=== PATIENT | female | born 1990 | race Caucasian/White ===

== ENCOUNTER 2018-10-03 01:15 | Inpatient (IN) | payer BC ==
[2018-10-03] MEDS ORDERED: Lidocaine 1% 50 ML MDV INJECT ONE (01:52)
[2018-10-03] MEDS ORDERED: Sodium Chloride 0.9% 10 ML Syringe FLUSH PRN (01:52)
[2018-10-03] MEDS ORDERED: Nalbuphine 20 MG/ML 1 ML Syringe IVPUSH PRN (01:52)
[2018-10-03] MEDS ORDERED: Oxytocin/Lactated Ringers 10 UNIT/1,000 ML BAG IV SCH (02:00)
[2018-10-03] MEDS: Lactated Ringers 1,000 ML IV SCH ×4 (02:07→05:54)
[2018-10-03] MEDS ORDERED: fentaNYL 100 MCG/2 ML SDV ONE (03:21)
[2018-10-03] MEDS ORDERED: fentaNYL 100 MCG/2 ML SDV EPIDUR PRN (03:33)
[2018-10-03] MEDS ORDERED: diphenhydrAMINE 50 MG/ML SDV IVPUSH PRN (03:33)
[2018-10-03] MEDS ORDERED: ePHEDrine 50 MG/ML SDV IVPUSH PRN (03:33)
--- NOTE | 2018-10-03 03:37 | PCM.PREANE ---
Preanesthetic Assessment - Procedure Proposed Procedure: carli - Anesthesia/Transfusion/Family Hx Anesthesia History: Prior Anesthesia Without Reaction Family History of Anesthesia Reaction: No Transfusion History: No Prior Transfusion(s) - Review of Systems General: No Symptoms Pulmonary: No Symptoms Cardiovascular: No Symptoms Gastrointestinal: No Symptoms Neurological: No Symptoms Other: Reports: None - Physical Assessment O2 Sat by Pulse Oximetry: 96 Respiratory Rate: 16 Vital Signs: Last Vital Signs Temp 98.1 F 10/03/18 01:52 Pulse 85 10/03/18 01:52 Resp 16 10/03/18 01:52 BP 117/73 10/03/18 01:52 Pulse Ox 96 10/03/18 01:52 Height: 5 ft 2 in Weight: 67.755 kg ASA Class: 2 Mental Status: Alert & Oriented x3 Airway Class: Mallampati = 1 Dentition: Reports: Normal Dentition Thyro-Mental Finger Breadths: 3 Mouth Opening Finger Breadths: 3 ROM/Head Extension: Full Lungs: Clear to Auscultation, Normal Respiratory Effort Cardiovascular: Regular Rate, Regular Rhythm - Lab Values: Laboratory Last Values WBC 16.67 K/mm3 (3.98-10.04) H 10/03/18 02:15 RBC 4.18 M/mm3 (3.98-5.22) 10/03/18 02:15 Hgb 12.4 gm/L (11.2-15.7) 10/03/18 02:15 Hct 37.4 % (34.1-44.9) 10/03/18 02:15 MCV 89.5 fl (79.4-94.8) 10/03/18 02:15 MCH 29.7 pg (25.6-32.2) 10/03/18 02:15 MCHC 33.2 g/dl (32.2-35.5) 10/03/18 02:15 RDW Std Deviation 40.9 fL (36.4-46.3) 10/03/18 02:15 Plt Count 170 K/mm3 (182-369) L 10/03/18 02:15 MPV 10.7 fl (9.4-12.3) 10/03/18 02:15 Neut % (Auto) 80.4 % (34.0-71.1) H 10/03/18 02:15 Lymph % (Auto) 8.2 % (19.3-51.7) L 10/03/18 02:15 Benson % (Auto) 9.8 % (4.7-12.5) 10/03/18 02:15 Eos % (Auto) 0.2 (0.7-5.8) L 10/03/18 02:15 Baso % (Auto) 0.2 % (0.1-1.2) 10/03/18 02:15 Neut # (Auto) 13.41 K/mm3 (1.56-6.13) H 10/03/18 02:15 Lymph # (Auto) 1.36 K/mm3 (1.18-3.74) 10/03/18 02:15 Benson # (Auto) 1.63 K/mm3 (0.24-0.36) H 10/03/18 02:15 Eos # (Auto) 0.04 K/mm3 (0.04-0.36) 10/03/18 02:15 Baso # (Auto) 0.03 K/mm3 (0.01-0.08) 10/03/18 02:15 Manual Slide Review Abnormal smear 10/03/18 02:15 - Allergies Allergies/Adverse Reactions: Allergies Allergy/AdvReac Type Severity Reaction Status Date / Time Sulfa (Sulfonamide Allergy Nausea and Verified 10/03/18 01:52 Antibiotics) Vomiting - Blood Blood Available: No - Acknowledgements Anesthesia Type Planned: Epidural Pt an Appropriate Candidate for the Planned Anesthesia: Yes Alternatives and Risks of Anesthesia Discussed w Pt/Guardian: Yes Pt/Guardian Understands and Agrees with Anesthesia Plan: Yes PreAnesthesia Questionnaire HEENT History: Reports: Other (See Below) (glasses) Cardiovascular History: Reports: None Respiratory History: Reports: None Gastrointestinal History: Reports: GERD (with preg on occasion) MERCHANDISING INTERN History: Reports: : 3 Para: 2 Endocrine/Metabolic History: Reports: None - History Comment History Comment: vit and iron - SUBSTANCE USE Smoking Status *Q: Never Smoker Tobacco Use Within Last Twelve Months: No Second Hand Smoke Exposure: No Days Per Week of Alcohol Use: 0 Recreational Drug Use History: No - CURRENT (IN HOUSE) MEDS Current Meds: Current Medications Diphenhydramine HCl (Benadryl) 25 mg IVPUSH Q6H PRN PRN Reason: pruritis Ephedrine Sulfate (Ephedrine Sulfate) 5 mg IVPUSH ASDIRECTED PRN PRN Reason: Hypotension Fentanyl (Sublimaze) 100 mcg EPIDUR Q3H PRN PRN Reason: Pain Fentanyl/Bupivacaine HCl (Fentanyl/Bupivacaine/Ns 2 Mcg-0.125% 100 Ml) 100 ml EPIDUR ASDIRECTED SAMRA Lactated Ringer's (Ringers, Lactated) 1,000 mls @ 100 mls/hr IV ASDIRECTED SAMRA Last Admin: 10/03/18 02:41 Dose: 999 mls/hr Oxytocin/Lactated Ringer's (Pitocin In Lr 10 Units/1,000 Ml) 10 unit in 1,000 mls @ 500 mls/hr IV .CONTINUOUS SAMRA; Protocol Nalbuphine HCl (Nubain) 10 mg IVPUSH Q2H PRN PRN Reason: pain Sodium Chloride (Saline Flush) 10 ml FLUSH ASDIRECTED PRN PRN Reason: Keep Vein Open Discontinued Medications Fentanyl (Sublimaze) Confirm Administered Dose 100 mcg .ROUTE .[employer]-MED ONE Stop: 10/03/18 03:22 Lidocaine HCl (Xylocaine 1%) 50 ml INJECT ONETIME ONE Stop: 10/03/18 01:53
[2018-10-03] MEDS ORDERED: fentaNYL/Bupivacaine-NS 2 MCG/ML-0.125%/PF 100 ML Bag EP SCH (03:45)
--- NOTE | 2018-10-03 07:17 | HP ---
DATE OF ADMISSION: 10/03/2018 DIAGNOSIS ADMISSION: A 37-3/7 weeks intrauterine , active labor with cervical change. HISTORY OF PRESENT ILLNESS: The patient is a 28-year-old, 3, para 2-0-0-2 white female from [place], [place], who was admitted during the course of the night of 10/03/2018 in active labor. She has progressed to approximately 6 cm. Her PIERCE is 10/21/2018 as based upon certain last menstrual period starting 01/14/2018 and supported by 2 ultrasounds done 03/28/2018 and 06/06/2018. Her PIERCE is 10/21/2018. She is 37-3/7 weeks gestational age today. heart tones are reassuring and contractions are occurring every 2 to 4 minutes, strong in intensity. CLIENT CARE MANAGER HISTORY: 3, para 2-0-0-2. The patient had menarche at age 14. Her cycles are regular, occurring on every 30-day basis. Not using any control at the time of conception. LMP 01/14/2018. Her past obstetric history includes the followin. Male born 11/07/2016 at 38 weeks gestational age after 12 hours of labor, normal spontaneous vaginal delivery - baby born in [place]. Child's name is John. 2. Male born [birth year]2016 at 39 weeks gestational age after 12 hours of labor, 8 pounds 5 ounces male born in [place], [place]. Child's name is Van. COURSE: With this started on 03/28/2018. She was seen on a regular basis. The patient's weight gain was approximately 25.2 pounds. Vital signs were stable throughout the course, and her fundal height growth was appropriate. The patient declined genetic evaluation. Her group B strep screen was negative. She had a normal 1 hour glucose tolerance test. She plans to breast feed. She desires epidural in labor for analgesia. laboratory testing shows her blood to be O positive with a negative antibody screen. Her initial hemoglobin at first visit was 11.5 g/dL. Platelets were 213,000. She is rubella immune. RPR is nonreactive. Urine culture was unremarkable. Hepatitis B surface antigen and HIV assays were negative as were her chlamydia and gonorrhea studies. Her hemoglobin at second-trimester was 12.2 and platelets were 184,000. Her 1-hour GTT was 101. Her group B strep screen performed on 10/01/2018 was negative. ALLERGIES: Sulfa drugs which cause nausea and vomiting. CURRENT MEDICATIONS: 1. Ferrous sulfate 325 mg p.o. daily. 2. vitamins 1 daily. PAST MEDICAL HISTORY: Normal spontaneous vaginal delivery x2 in 2014 and 2016. PAST SURGICAL HISTORY: Unremarkable. FAMILY HISTORY: Mother is alive and well. Father is alive with type 1 diabetes. Maternal grandfather is secondary to some type of cancer, which is unknown. Maternal grandmother is secondary to brain cancer. Paternal grandfather is secondary to prostate cancer. Paternal grandmother is secondary to brain cancer. Family history of cancer. There is no family history of bleeding or clotting abnormalities, anesthesia issues, -related issues. SOCIAL HISTORY: The patient is . is, Jose Carlos Alcantara. 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 She does not use any significant amounts of alcohol, drugs, or tobacco. She lives in [place], [place] with her and family. REVIEW OF SYSTEMS: GENERAL: The patient is a well-developed, well-nourished, pleasant female, in active labor. SKIN: Negative. HEENT, NECK, and BACK: Negative. CARDIOVASCULAR: No chest pain or exercise tolerance. LUNGS: No shortness of breath or infectious symptoms. BREASTS: Changes associated with only. GI: Negative. : Changes associated with with increased body habitus size with fundal height. MUSCULOSKELETAL: Negative with the exception of occasional lower extremity swelling. NEUROLOGICAL: Negative. PHYSICAL EXAMINATION: VITAL SIGNS: On last evaluation in clinic, the patient's blood pressure was 102/78, her weight was 149.2 pounds, heart rate was 144. Her pregravid weight was 115 pounds. Her pregravid BMI was 21, and her height is 5 feet 2 inches. GENERAL: The patient is a well-developed, well-nourished, pleasant female, stated age, in no acute distress. SKIN: Warm, dry, without lesions. HEENT, NECK, AND BACK: Within normal limits. LUNGS: Clear with good breath sounds in all lung wyatt. CARDIOVASCULAR: Shows regular rate and rhythm without murmurs. BREASTS: Exam is deferred, having been done at first visit and found to be normal. It is not repeated at this time. ABDOMEN: Protuberant with with fundal height of 39.5 cm with baby in vertex presentation by Kb maneuvers and cervical exam. : Cervix is 6 cm at the present time, was 2+ cm, 80% effaced, very soft, mid position, minus 3 on last evaluation in clinic. EXTREMITIES: Show trace edema. Otherwise, unremarkable. NEUROLOGICAL: Grossly within normal limits. ASSESSMENT: 1. A 37-3/7 weeks intrauterine , active labor, normal progression of labor. 2. Group B strep screen negative. 3. The patient plans to breast feed. 4. The patient desires epidural in Labor and Delivery. 5. RPR is nonreactive. 6. The patient is rubella immune. PLAN: 1. Anticipate normal spontaneous vaginal delivery. 2. Epidural for pain control. 3. Support nursing decision. 4. CBC and RPR upon admission. MMODAL /[id number]
[2018-10-03] MEDS: Ibuprofen 600 MG Tab PO PRN ×4 (09:00→23:38)
[2018-10-03] MEDS ORDERED: Lanolin 100% Cream 7 GM Tube TOP PRN (12:58)
[2018-10-03] MEDS ORDERED: Benzocaine/Menthol 20%-0.5% Spray 56 GM Canister TOP PRN (12:58)
[2018-10-03] MEDS ORDERED: Acetaminophen 325 MG Tab PO PRN (12:58)
[2018-10-03] MEDS ORDERED: Witch Hazel Medicated Pads 100/Jar TOP PRN (12:58)
--- NOTE | 2018-10-03 19:37 | PCM.SN ---
- Free Text/Narrative Note: Delivery note: Angelina is a 28-year-old 3 now para 3003 white female was admitted on the night of 10/02/2018 in active labor at 37 weeks and 3 days. She progressed rapidly, had spontaneous rupture membranes. She underwent an epidural for labor analgesia. She progressed to complete cervical dilation and delivered a viable, chapin, male with Apgars of 8 and 9, weight of 3400 g (7 pounds 7.9 ounces), a length of 20.5 inches in a right occiput anterior position over an intact perineum. The baby was placed on mom's abdomen, nose and mouth were bulb suctioned. Pitocin was started IV to facilitate and increase in uterine tone and decrease the likelihood of uterine bleeding. The placenta delivered in a Garcia reason dictation, appeared intact and complete and was discarded per patient desire. Patient had a 100 mL blood loss. She plans to breast-feed. Condition: Good
[2018-10-03] MEDS ORDERED: Lidocaine 1.5% with EPINEPHrine 1:200,000 5 ML Amp ONE (22:00)
[2018-10-03] MEDS ORDERED: Bupivacaine 0.25% 10 ML SDV ONE (22:00)
[2018-10-04] MEDS: Ibuprofen 600 MG Tab PO PRN ×2 (03:22→07:21)
--- NOTE | 2018-10-04 06:41 | PCM.DCSUM1 ---
Discharge Summary - Hospital Course Free Text/Narrative:: Angelina is a 28-year-old 3 now para 3003 white female was admitted on the night of 10/02/2018 in active labor at 37 weeks and 3 days. She progressed rapidly, had spontaneous rupture membranes. She underwent an epidural for labor analgesia. She progressed to complete cervical dilation and delivered a viable, chapin, male with Apgars of 8 and 9, weight of 3400 g (7 pounds 7.9 ounces), a length of 20.5 inches in a right occiput anterior position over an intact perineum. The baby was placed on mom's abdomen, nose and mouth were bulb suctioned. Pitocin was started IV to facilitate and increase in uterine tone and decrease the likelihood of uterine bleeding. The placenta delivered in a Garcia reason dictation, appeared intact and complete and was discarded per patient desire. Patient had a 100 mL blood loss. She plans to breast-feed. patient is done well. She is nursing without problems, ambulating well and has no concerns about her lochia. She is desiring discharge home today. Diagnosis: Stroke: No - Discharge Data Discharge Date: 10/04/18 Discharge Disposition: Home, Self-Care 01 Condition: Good - Patient Instructions Diet: Regular Diet as Tolerated (Nursing diet with increase calories and calcium is recommended) Activity: As Tolerated (No intercourse or tampons until bleeding resolves) Driving: May Drive Today Showering/Bathing: May Shower (May take a bath) Notify Provider of: Fever, Increased Pain, Swelling and Redness - Discharge Plan Home Medications: Home Meds Acetaminophen [Tylenol] 650 mg PO Q4H PRN tablet 10/04/18 [Rx] Ibuprofen [Motrin] 600 mg PO Q4H PRN tablet 10/04/18 [Rx] Vit with Ca/FA/Iron [ Plus Iron] 1 each PO DAILY tablet [Rx] - Discharge Summary/Plan Comment DC Time >30 min.: No Discharge Summary/Plan Comment: Discharge instructions: 1. Discharge home 2. Diet, activity and follow-up discussed with patient. Recommend nursing diet with increased calories and calcium. 3. Precautions given concern increased pain, bleeding, temperature, signs/ symptoms of DVT/PE. 4. Medications per home medication was printed, discussed with and given to the patient. 5. Return to clinic-[facility] in 2 weeks. Diagnosis: Term -delivered Condition: Good - Patient Data Vitals - Most Recent: Last Vital Signs Temp 36.7 C 10/04/18 03:19 Pulse 99 10/04/18 03:19 Resp 16 10/04/18 03:19 BP 113/88 10/04/18 03:19 Pulse Ox 98 10/04/18 03:19 Weight - Most Recent: 67.755 kg I&O - Last 24 hours: Intake & Output 10/03/18 10/03/18 10/04/18 14:59 22:59 06:59 Intake Total 0 320 Balance 0 320 Lab Results - Last 24 hrs: Laboratory Results - last 24 hr 10/03/18 Range/Units 02:15 RPR Non-reactive (NONREACTIVE) Med Orders - Current: Current Medications Acetaminophen (Tylenol) 650 mg PO Q4H PRN PRN Reason: mild pain or fever Last Admin: 10/03/18 17:09 Dose: 650 mg Benzocaine/Menthol (Dermoplast Pain Relief [place]) 0 gm TOP ASDIRECTED PRN PRN Reason: Perineal Comfort Measure Last Admin: 10/03/18 14:06 Dose: 1 sprays Emollient Ointment (Lansinoh Hpa) 0 gm TOP ASDIRECTED PRN PRN Reason: Sore Nipples Ibuprofen (Motrin) 600 mg PO Q4H PRN PRN Reason: Mild pain or fever Last Admin: 10/04/18 03:22 Dose: 600 mg Prenat Multivit/Flour Blender/Iron/Folic Ac ( Plus Iron) 1 each PO DAILY SAMRA Evans (Tucks) 1 pad TOP ASDIRECTED PRN PRN Reason: Hemorrhoid pain Last Admin: 10/03/18 14:06 Dose: 1 pad Discontinued Medications Diphenhydramine HCl (Benadryl) 25 mg IVPUSH Q6H PRN PRN Reason: pruritis Ephedrine Sulfate (Ephedrine Sulfate) 5 mg IVPUSH ASDIRECTED PRN PRN Reason: Hypotension Fentanyl (Sublimaze) Confirm Administered Dose 100 mcg .ROUTE .STK-MED ONE Stop: 10/03/18 03:22 Last Admin: 10/03/18 09:52 Dose: Not Given Fentanyl (Sublimaze) 100 mcg EPIDUR Q3H PRN PRN Reason: Pain Last Admin: 10/03/18 03:39 Dose: 100 mcg Fentanyl/Bupivacaine HCl (Wxvyxxls-Vcbij-Eq 2 Mcg/Ml-0.125%) 100 ml EP ASDIRECTED SAMRA Last Admin: 10/03/18 03:38 Dose: 100 ml Lactated Ringer's (Ringers, Lactated) 1,000 mls @ 100 mls/hr IV ASDIRECTED SAMRA Last Admin: 10/03/18 05:54 Dose: 999 mls/hr Oxytocin/Lactated Ringer's (Pitocin In Lr 10 Units/1,000 Ml) 10 unit in 1,000 mls @ 500 mls/hr IV .CONTINUOUS SAMRA; Protocol Last Admin: 10/03/18 09:16 Dose: 500 mls/hr Lidocaine HCl (Xylocaine 1%) 50 ml INJECT ONETIME ONE Stop: 10/03/18 01:53 Last Admin: 10/03/18 09:52 Dose: Not Given Nalbuphine HCl (Nubain) 10 mg IVPUSH Q2H PRN PRN Reason: pain Sodium Chloride (Saline Flush) 10 ml FLUSH ASDIRECTED PRN PRN Reason: Keep Vein Open
[2018-10-04] MEDS ORDERED: Prenatal Multivitamin with Calcium/Folic Acid/Iron Tab PO SCH (09:00)
[2018-10-04 11:18] VITALS: BP 105/74
--- NOTE | 2018-10-04 12:41 | PCM48HPAN ---
Post Anesthesia Note - EVALUATION WITHIN 48HRS OF ANESTHETIC Vital Signs in Normal Range: Yes Patient Participated in Evaluation: Yes Respiratory Function Stable: Yes Airway Patent: Yes Cardiovascular Function Stable: Yes Hydration Status Stable: Yes Pain Control Satisfactory: Yes Nausea and Vomiting Control Satisfactory: Yes Mental Status Recovered: Yes - COMMENTS/OBSERVATIONS Free Text/Narrative:: Patient denied any post anesthesia complications
== END 2018-10-04 11:50 | disposition home or self-care (01) | DRG 560 ==
LOC: JD.OBCHECK 01:15 → JD.OB 01:15 → JD.OBCHECK 01:51 → JD.OB 01:52 → OBSVTOIN 08:04 → JD.OB 08:05
PROVIDERS: ADMIT Obstetrics & Gynecology; ATTEND Obstetrics & Gynecology
PROC: 10E0XZZ Delivery of Products of Conception, External Approach (ICD-10-PCS; principal; 2018-10-03)
PROC: 00HU33Z Insertion of Infusion Device into Spinal Canal, Percutaneous Approach (ICD-10-PCS; 2018-10-03)
PROC: 3E0R3BZ Introduction of Anesthetic Agent into Spinal Canal, Percutaneous Approach (ICD-10-PCS; 2018-10-03)
DX: O62.3 Precipitate labor (principal); Z3A.37 37 weeks gestation of pregnancy; Z37.0 Single live birth; Z88.2 Allergy status to sulfonamides
CPT/HCPCS: 36415; 51702; 59020; 59409; 85025; 86592; A9270-GY; J2590; J3010; J3490; J7120

== ENCOUNTER 2021-09-18 14:24 | Inpatient (IN) | payer BC ==
[2021-09-19] MEDS ORDERED: Lidocaine 2% with EPINEPHrine 1:200,000 20 ML SDV ONE
[2021-09-19] MEDS ORDERED: Nalbuphine 10 MG/1 ML Vial IVPUSH PRN (01:22)
[2021-09-19] MEDS ORDERED: Ondansetron 4 MG/2 ML SDV IVPUSH PRN (01:22)
[2021-09-19] MEDS ORDERED: Sodium Chloride 0.9% 10 ML Syringe FLUSH PRN (01:22)
[2021-09-19] MEDS ORDERED: Oxytocin/Lactated Ringers 10 UNIT/1,000 ML BAG IV SCH ×2 (01:30→10:15)
[2021-09-19] MEDS ORDERED: diphenhydrAMINE 50 MG/ML SDV IVPUSH PRN (03:16)
[2021-09-19] MEDS ORDERED: Bupivacaine/fentaNYL/NS 100 ML Bag EPIDUR PRN (03:16)
[2021-09-19] MEDS ORDERED: ePHEDrine 50 MG/ML SDV IVPUSH PRN (03:16)
[2021-09-19] MEDS ORDERED: fentaNYL 100 MCG/2 ML SDV EPIDUR PRN (03:16)
[2021-09-19] MEDS: Lactated Ringers 1,000 ML IV SCH ×4 (04:00→10:04)
[2021-09-19] MEDS ORDERED: Sodium Chloride 0.9% 10 ML Syringe FLUSH SCH (09:00)
[2021-09-19] MEDS ORDERED: Witch Hazel Medicated Pads 40/Jar TOP PRN (16:04)
[2021-09-19] MEDS ORDERED: Benzocaine/Menthol 20%-0.5% Spray 78 GM Cannister TOP PRN (16:04)
[2021-09-19] MEDS ORDERED: Acetaminophen 325 MG Tab PO PRN (16:04)
[2021-09-19] MEDS: Ibuprofen 600 MG Tab PO PRN (22:19)
[2021-09-20] MEDS: Ibuprofen 600 MG Tab PO PRN ×2 (04:41→13:33)
[2021-09-20 09:40] VITALS: BP 115/83; PULSE 106
== END 2021-09-20 15:00 | disposition home or self-care (01) | DRG 560 ==
LOC: JD.OB 14:24 → OBSVTOIN 09-19 14:24 → JD.OB 09-19 14:25
PROVIDERS: ADMIT Obstetrics & Gynecology; ATTEND Obstetrics & Gynecology
PROC: 10907ZC Drainage of Amniotic Fluid, Therapeutic from Products of Conception, Via Natural or Artificial Opening (ICD-10-PCS; principal; 2021-09-19)
PROC: 10E0XZZ Delivery of Products of Conception, External Approach (ICD-10-PCS; 2021-09-19)
PROC: 0HQ9XZZ Repair Perineum Skin, External Approach (ICD-10-PCS; 2021-09-19)
PROC: 3E0R3BZ Introduction of Anesthetic Agent into Spinal Canal, Percutaneous Approach (ICD-10-PCS; 2021-09-19)
DX: O99.824 Streptococcus B carrier state complicating childbirth (principal); O98.52 Other viral diseases complicating childbirth; O70.0 First degree perineal laceration during delivery; Z3A.37 37 weeks gestation of pregnancy; Z37.0 Single live birth; U07.1 COVID-19
CPT/HCPCS: 01967; 36415; 51702; 59025; 59409; 85027; 86592; A9270-GY; J2590; J3010; J7120; U0002

== ENCOUNTER 2021-11-30 10:19 | Day surgery (SDC) | payer BC ==
[~2021-11-30 10:19] MED LIST: Bupivacaine 0.5%/EPINEPHrine 1:200,000 50 ML MDV ONE; Dexamethasone 4 MG/ML 5 ML MDV ONE; Lactated Ringers 1,000 ML IV SCH; Lidocaine 1% 4 ML ONE; Lidocaine 1%/Sod Bicarbonate in NS 8.4% 1 ML Syringe IDERM PRN; Midazolam 1 MG/ML 2 ML SDV ONE; Ondansetron 4 MG/2 ML SDV ONE; Propofol 200 MG/20 ML SDV ONE; Rocuronium 50 MG/5 ML Vial ONE; Sodium Chloride 0.9% 10 ML Syringe FLUSH PRN; Sodium Chloride 0.9% 10 ML Syringe FLUSH SCH; ceFAZolin 1 GM Vial ONE; fentaNYL 250 MCG/5 ML SDV ONE
[2021-11-30] MEDS ORDERED: ePHEDrine 50 MG/ML SDV ONE (12:25)
[2021-11-30] MEDS ORDERED: fentaNYL 100 MCG/2 ML SDV IVPUSH PRN (12:37)
[2021-11-30] MEDS ORDERED: Ondansetron 4 MG/2 ML SDV IVPUSH PRN (12:37)
[2021-11-30] MEDS ORDERED: HYDROmorphone 0.5 MG/0.5 ML Syringe IVPUSH PRN (12:37)
[2021-11-30] MEDS ORDERED: Ketorolac 30 MG/ML SDV ONE (12:42)
[2021-11-30] MEDS ORDERED: oxyCODONE 5 MG Tab PO ONE (14:30)
[2021-11-30 15:30] VITALS: BP 110/64; PULSE 65
== END 2021-11-30 15:19 | disposition home or self-care (01) ==
LOC: JD.SDS 10:19
PROVIDERS: ATTEND Surgery
DX: K42.9 Umbilical hernia without obstruction or gangrene (principal); Z88.2 Allergy status to sulfonamides; Z79.899 Other long term (current) drug therapy
CPT/HCPCS: 49585; 81025; A9270; C1781; J0690; J1100; J1885; J2250; J2405; J2704; J2710; J3010; J3490; J7120; 00750